=== PATIENT | male | born 1990 | race Caucasian/White ===

== ENCOUNTER 2022-07-18 16:09 | Emergency (ER) | payer OTHER ==
[2022-07-18] MEDS ORDERED: MECLIZINE 12.5 MG TABLET PO STA (16:36)
--- NOTE | 2022-07-18 16:38 | ED Physician Documentation ---
PD HPI FOCAL NEURO - Stated complaint Stated Complaint: LIGHTHEADED/DIZZY - Chief complaint Chief Complaint: Neuro - History obtained from History obtained from: Patient - Additional information Additional information: Previously healthy 31-year-old gentleman was in his usual state of health and then stood up quickly after lunch and got lightheaded and then got "the spins." This is especially bad if he changes position. He is relatively comfortable at rest though. This is never happened to him before. He presumed an inner ear problem and clean his ears with quite a bit of wax removed but no change in his symptoms. He denies weakness, numbness, tingling, headaches, discoordination or other focal neurologic symptoms. Review of Systems Constitutional: denies: Fever, Chills Ears: denies: Loss of hearing, Ear pain, Drainage/discharge, Tinnitus/ringing Nose: denies: Rhinorrhea / runny nose PD PAST MEDICAL HISTORY - Present Medications Home Medications: Ambulatory Orders Medication Instructions Recorded Confirmed Meclizine HCl [Motion Sickness] 25 mg PO Q6H PRN #14 tablet 07/18/22 - Allergies Allergies/Adverse Reactions: Allergies Allergy/AdvReac Type Severity Reaction Status Date / Time cephalexin [From Keflex] Allergy Hives Verified 07/18/22 16:21 nickel Allergy Rash Verified 07/18/22 16:21 PD ED PE NORMAL - Vitals Vital signs reviewed: Yes - General General: Alert and oriented X 3, No acute distress - HEENT HEENT: PERRL, EOMI (No nystagmus at this time but he is relatively asymptomatic now.), Other (TMs with some sclerosis but no acute appearing abnormality.) - Neck Neck: Supple, no meningeal sign, No bony TTP - Cardiac Cardiac: RRR, No murmur - Respiratory Respiratory: No respiratory distress, Clear bilaterally - Abdomen Abdomen: Non tender - Extremities Extremities: No deformity, No tenderness to palpate - Neuro Neuro: Alert and oriented X 3, wire setter 2-12 intact, No motor deficit, No sensory deficit, Normal speech, Other (Normal [id number] and [id number] testing bilaterally.) Eye Opening: Spontaneous Motor: Obeys Commands Verbal: Oriented GCS Score: 15 NIHSS - Time Time: 16:30 - Level of Consciousness Level of consciousness: (0) Alert, Keenly responsive LOC Questions: (0) Answers both Q's correct LOC Commands: (0) Performs both correctly - Gaze Best Gaze: (0) Normal - Visual Visual: (0) No loss - Facial Palsy Facial Palsy: (0) Normal, symmetrical movement - Motor Arms (both separate) Motor Arm (right): (0) No drift Motor Arm (left): (0) No drift - Motor Legs (both separate) Motor Leg (right): (0) No drift Motor Leg (left): (0) No drift - Limb Ataxia Limb Ataxia: (0) Absent - Sensory Sensory: (0) Normal - Best Language Best Language: (0) No aphasia - Dysarthria Dysarthria: (0) Normal - Extinction and Inattention (formally neg Extinction and inattention: (0) No abnormality - Total Score/Results Total Score/Result: 0 Results - Vitals Vitals: Vital Signs - 24 hr 07/18/22 16:18 Temperature 36.1 C L Heart Rate 84 Respiratory 16 Rate Blood Pressure 146/83 H O2 Saturation 97 Oxygen O2 Source Room air - Labs Labs: Laboratory Tests 07/18/22 07/18/22 16:43 16:43 WBC 7.4 RBC 5.12 Hgb 16.1 Hct 45.3 MCV 88.5 MCH 31.4 H MCHC 35.5 RDW 11.5 L Plt Count 227 MPV 10.7 Neut # (Auto) 4.1 Lymph # (Auto) 2.1 [place] # (Auto) 0.8 Eos # (Auto) 0.3 Baso # (Auto) 0.1 Absolute Nucleated RBC 0.00 Nucleated RBC % 0.0 Sodium 140 Potassium 3.8 Chloride 103 Carbon Dioxide 29 Anion Gap 8.0 BUN 11 Creatinine 0.9 Estimated GFR (MDRD) 98 Glucose 114 H Calcium 9.4 PD MEDICAL DECISION MAKING - ED course ED course: 31-year-old gentleman presents with peripheral vertigo. He was administered meclizine with significant improvement in his symptoms. Nothing in the history or physical to suggest a more sinister cause. Departure - Departure Disposition: 01 Home, Self Care Clinical Impression: Vertigo Condition: Good Record reviewed to determine appropriate education?: Yes Instructions: ED Vertigo Unspecified Prescriptions: Meclizine HCl [Motion Sickness] 25 mg PO Q6H PRN #14 tablet PRN Reason: Dizziness Comments: Do not drink or drive while taking prescription antivertigo medication. [place]. Return for new or worsening symptoms, especially, but not limited to, severe headache, severe nausea, or weakness numbness tingling or incoordination of any part of your body. Forms: Activity restrictions
[2022-07-18 16:48] LABS: BASOPHILS # (AUTO) 0.1 10^3/uL (0.0-0.1); BASOPHILS % (AUTO) 1.4 %; EOSINOPHILS # (AUTO) 0.3 10^3/uL (0.0-0.7); EOSINOPHILS % (AUTO) 4.1 %; HCT - HEMATOCRIT 45.3 % (42.0-52.0); HGB - HEMOGLOBIN 16.1 g/dL (14.0-18.0); LYMPHOCYTES # (AUTO) 2.1 10^3/uL (1.5-3.5); LYMPHOCYTES % (AUTO) 28.8 %; MEAN CORPUSCULAR HEMOGLOBIN 31.4 pg (27.0-31.0); MEAN CORPUSCULAR HGB CONC 35.5 g/dL (32.0-36.0); MEAN CORPUSCULAR VOLUME 88.5 fL (80.0-94.0); MEAN PLATELET VOLUME 10.7 fL (7.4-11.4); MONOCYTES # (AUTO) 0.8 10^3/uL (0.0-1.0); MONOCYTES % (AUTO) 10.3 %; NEUTROPHILS # (AUTO) 4.1 10^3/uL (1.5-6.6); NEUTROPHILS % (AUTO) 55.1 %; PLT - PLATELET COUNT 227 10^3/uL (130-450); RED BLOOD COUNT 5.12 10^6/uL (4.70-6.10); RED CELL DISTRIBUTION WIDTH 11.5 % (12.0-15.0); WHITE BLOOD COUNT 7.4 x10^3/uL (4.8-10.8)
[2022-07-18 16:56] LABS: CALCIUM 9.4 mg/dL (8.5-10.3); CREATININE 0.9 mg/dL (0.6-1.2); POTASSIUM 3.8 mmol/L (3.5-5.0)
[2022-07-18 17:30] VITALS: BP 144/75
== END 2022-07-18 17:30 | disposition home or self-care (01) ==
LOC: ED 16:09
DX: R42 Dizziness and giddiness (principal)
CPT/HCPCS: 36415; 80048; 85025; 99283; A9270

== ENCOUNTER 2022-09-09 07:33 | Outpatient (CLI) | payer OTHER ==
--- NOTE | 2022-09-09 13:17 | MRI Report ---
PROCEDURE: WRIST WO - RT INDICATIONS: WRIST PAIN, GANGLION CYST TECHNIQUE: Noncontrast coronal proton density fast spin echo and T2 fast spin echo with fat saturation; coronal 3-D gradient echo, axial T1 spin echo and T2 fast spin echo with fat saturation, sagittal T1 spin ech o through the wrist. COMPARISON: None. FINDINGS: Image quality: Excellent. Bones and cartilage: The carpal bones are normally aligned. No bone marrow contusions or fractures. No evidence for avascular necrosis. Overlying cartilage surfaces appear normal. Carpal ligaments: The scapholunate and lunotriquetral ligaments appear intact. In the absence of in tra-articular contrast, the extrinsic carpal ligaments are not well identified. On sagittal images, the pisohamate ligament appears intact. Triangular fibrocartilage complex: The triangular fibrocartilage appears intact. The adjacent menis rafa homolog appears normal in the absence of intra-articular contrast. The extensor carpi ulnaris te ndon is normal in location and morphology. Tendons and soft tissues: The carpal tunnel structures appear normal, including the median nerve. T he ulnar nerve appears normal within Guyon's canal. All six extensor tendon compartments demonstrate normal morphology, without pathologic tendon sheath fluid. Lobulated cystic structure over volar and radial aspect of wrist joint at the level of radial styloid and is lateral to the flexor carpi radia lis tendon, measures up to 1.5 x 1.1 x 1.2 cm in size. IMPRESSION: 1. 1.5 x 1.1 x 1.2 cm ganglion cyst over volar and radial aspect of wrist joint at the level of radia l styloid and is lateral to flexor carpi radialis tendon. 2. No marrow edema. No fracture or dislocation. No evidence of osteonecrosis. 3. Intrinsic and extrinsic wrist ligaments are intact. 4. Extensor and flexor tendons are grossly intact. Reviewed by: Eulogio Hanson MD on 09/09/2022 1:15 PM PDT Approved by: Eulogio Hanson MD on 09/09/2022 1:15 PM PDT Station ID: [id number]
== END 2022-09-09 07:34 | disposition home or self-care (01) ==
LOC: DI 07:33
PROVIDERS: ATTEND Student in an Organized Health Care Education/Training Program
DX: M67.431 Ganglion, right wrist (principal); M25.531 Pain in right wrist

== ENCOUNTER 2024-07-02 07:02 | Outpatient (CLI) | payer OTHER ==
--- NOTE | 2024-07-02 08:14 | MRI Report ---
PROCEDURE: Cervical Spine WO INDICATIONS: CERVICALGIA TECHNIQUE: Noncontrast sagittal T1 spin echo and T2 fast spin echo, sagittal STIR, foraminal oblique sagittal T2 fast spin echo, and axial gradient echo or T2 fast spin echo through the cervical spine. COMPARISON: None. FINDINGS: Image quality: Excellent. Alignment and Curvature: There is normal bony alignment. Bone Marrow: Marrow demonstrates normal overall signal. Spinal Cord: Visualized spinal cord has normal size and signal. No cerebellar tonsillar herniation. Paraspinous Soft Tissues: No paravertebral masses. Prevertebral soft tissues are normal in thicknes s. C2-C3: No canal stenosis or foraminal stenosis. C3-C4: No canal stenosis or foraminal stenosis. C4-C5: Minimal central posterior disc protrusion. Borderline canal stenosis. AP diameter of the cent ral canal is 9.8 mm. Foramina are widely patent. C5-C6: Chronic disc height loss. Posterior disc plus osteophyte. Flattening of the right ventral cor d. There is borderline central canal stenosis. There is mild to moderate stenosis of the right side o f the canal. There is bilateral uncovertebral joint hypertrophy. There is mild bilateral foraminal na rrowing. C6-C7: There is chronic disc height loss. There is posterior disc plus osteophyte. Mild central marci l stenosis. AP diameter of the central canal is 9.6 mm. There is left uncovertebral joint hypertrophy plus a focal left foraminal disc protrusion which impinges on the left C7 nerve root in the left lat eral recess. Left foraminal narrowing is moderate to severe. Reference axial image 32 of series 5 and left parasagittal oblique image 9 of series 6. There is right uncovertebral joint hypertrophy with m ild to moderate right foraminal narrowing. C7-T1: Normal in appearance. IMPRESSION: 1. Cervical spondylitic change with multilevel chronic disc height loss and disc bulges and uncoverte bral joint hypertrophy. 2. At C5-C6, there is borderline central canal stenosis and mild to moderate stenosis of the right si de of the canal. 3. There is borderline canal stenosis at C4-C5 and mild canal stenosis at C6-C7. 4. At C6-C7, a combination of uncovertebral joint hypertrophy and a small left foraminal focal disc p rotrusion impinges on the left C7 nerve root in the medial left foramen. Reviewed by: Toñito Miller MD on 07/02/2024 8:13 AM PDT Approved by: Toñito Miller MD on 07/02/2024 8:13 AM PDT Station ID: [id number]
== END 2024-07-02 07:03 | disposition home or self-care (01) ==
LOC: DI 07:02
PROVIDERS: ATTEND Nurse Practitioner Family
DX: M50.123 Cervical disc disorder at C6-C7 level with radiculopathy (principal); M50.121 Cervical disc disorder at C4-C5 level with radiculopathy; M47.22 Other spondylosis with radiculopathy, cervical region; M48.02 Spinal stenosis, cervical region